=== PATIENT | male | born 1950 | race Caucasian/White ===

== ENCOUNTER 2018-12-20 01:13 | Emergency (ER) | payer MEDICARE, OTHER ==
[~2018-12-20] VITALS: Ht 177.8 cm; Wt 97.0 kg
[2018-12-20 01:18] VITALS: BP 152/86
[2018-12-20] MEDS ORDERED: ipratropium/albuterol 3ml nebule NEB ONE (01:25)
[2018-12-20] MEDS ORDERED: PRED20TA PO (02:00)
[2018-12-20] MEDS ORDERED: albuterol 2.5 MG/3 ML nebule NEB ONE (02:00)
[2018-12-20] MEDS ORDERED: predniSONE 20 mg tablet PO ONE (02:00)
== END 2018-12-20 02:36 | disposition home or self-care (01) ==
LOC: ER 01:14
DX: J45.901 Unspecified asthma with (acute) exacerbation (principal); Z87.891 Personal history of nicotine dependence; Z98.890 Other specified postprocedural states; Z88.0 Allergy status to penicillin; Z88.2 Allergy status to sulfonamides; Z88.5 Allergy status to narcotic agent; Z88.1 Allergy status to other antibiotic agents; Z88.8 Allergy status to other drugs, medicaments and biological substances; Z79.899 Other long term (current) drug therapy
CPT/HCPCS: 93005; 94640; 94760; 99284

== ENCOUNTER 2019-01-16 11:19 | Emergency (ER) | payer OTHER, MEDICARE ==
[~2019-01-16] VITALS: Ht 177.8 cm; Wt 97.0 kg
[~2019-01-16 11:19] MED LIST: PRED20TA PO
[2019-01-16 12:03] LABS: BASOPHILS # (AUTO) 0.1 X10'3 (0-0.2); EOSINOPHILS # (AUTO) 0.5 X10'3 (0-0.9); EOSINOPHILS % (AUTO) 7.1 % (0-6); HEMATOCRIT 44.3 % (42.0-52.0); HEMOGLOBIN 15.3 g/dl (14.0-17.9); LYMPHOCYTES # (AUTO) 1.7 X10'3 (1.1-4.8); LYMPHOCYTES % (AUTO) 25.6 % (21-51); MEAN CORPUSCULAR HEMOGLOBIN 31.2 PG (27.0-31.0); MEAN CORPUSCULAR HGB CONC 34.6 g/dL (33.0-36.5); MEAN CORPUSCULAR VOLUME 90.3 FL (78-98); MEAN PLATELET VOLUME 6.9 FL (7.4-10.4); MONOCYTES # (AUTO) 0.7 X10'3 (0-0.9); MONOCYTES % (AUTO) 11.1 % (2-12); NEUTROPHILS # (AUTO) 3.6 X10'3 (1.8-7.7); NEUTROPHILS % (AUTO) 55.2 % (42-75); PLATELET COUNT 248 X10'3 (140-440); RED CELL DISTRIBUTION WIDTH 13.4 % (11.5-14.5); WHITE BLOOD COUNT 6.6 X10'3 (4.5-11.0)
[2019-01-16 12:10] VITALS: BP 128/83
[2019-01-16 12:13] LABS: ALANINE AMINOTRANSFERASE 21 U/L (12-78); ALBUMIN 4.1 G/DL (3.4-5.0); ALBUMIN/GLOBULIN RATIO 1.3 (1.1-1.5); ALKALINE PHOSPHATASE 71 IU/L (46-116); ANION GAP 9 (8-16); ASPARTATE AMINO TRANSFERASE 14 U/L (10-37); BILIRUBIN,TOTAL 0.6 MG/DL (0.1-1.0); BLOOD UREA NITROGEN 14 MG/DL (7-18); BUN/CREATININE RATIO 14.9 (5.4-32.0); CALCIUM 8.9 MG/DL (8.5-10.1); CHLORIDE 103 MMOL/L (99-107); CREATININE 0.94 MG/DL (0.60-1.10); GLUCOSE 99 MG/DL (70-104); POTASSIUM 4.8 MMOL/L (3.5-5.1); SODIUM 138 MMOL/L (135-145); TOTAL CARBON DIOXIDE 26.4 MMOL/L (24-32); TOTAL PROTEIN 7.3 G/DL (6.4-8.2); eGFR 80 ML/MIN
== END 2019-01-16 12:49 | disposition home or self-care (01) ==
LOC: ER 11:20
DX: H54.7 Unspecified visual loss (principal); R10.9 Unspecified abdominal pain; I10 Essential (primary) hypertension; J45.909 Unspecified asthma, uncomplicated; K21.9 Gastro-esophageal reflux disease without esophagitis; Z87.891 Personal history of nicotine dependence; Z85.46 Personal history of malignant neoplasm of prostate; Z88.1 Allergy status to other antibiotic agents; Z88.5 Allergy status to narcotic agent; Z88.0 Allergy status to penicillin; Z88.2 Allergy status to sulfonamides; Z88.8 Allergy status to other drugs, medicaments and biological substances; Z79.899 Other long term (current) drug therapy; Z98.890 Other specified postprocedural states
CPT/HCPCS: 36415; 71045; 80053; 84484; 85025; 93005; 99284

== ENCOUNTER 2019-02-06 03:59 | Emergency (ER) | payer OTHER, MEDICARE ==
[~2019-02-06] VITALS: Ht 177.8 cm; Wt 103.8 kg
[2019-02-06] MEDS ORDERED: CEPH-572 PO (05:37)
[2019-02-06 05:48] VITALS: BP 118/73
[2019-02-06 05:50] LABS: CLARITY,URINE CLOUDY (Clear); COLOR,URINE YELLOW (Yellow); GLUCOSE, URINE NEGATIVE (Neg); KETONES,URINE NEGATIVE (Neg); LEUKOCYTE ESTERASE ,URINE LARGE (Neg); OCCULT BLOOD,URINE LARGE (Neg); PH,URINE 6.5 (4.8-8.0); PROTEIN,URINE >=300 mg/dl (Neg)
[2019-02-06 05:54] LABS: UA COLLECTION TYPE FOLEY CATH
[2019-02-06 05:55] LABS: NITRITES, URINE NEGATIVE (Neg); WBC,URINE TNTC /HPF (0-4)
[2019-02-06 05:56] LABS: BACTERIA,URINE FEW /HPF (Neg); SQUAMOUS EPITHELIAL CELL,UR FEW /LPF (FEW); WBC CLUMPS,URINE MODERATE /HPF (NEGATIVE)
== END 2019-02-06 05:50 | disposition home or self-care (01) ==
LOC: ER 04:00
DX: R20.0 Anesthesia of skin (principal); R20.2 Paresthesia of skin; I10 Essential (primary) hypertension; J45.909 Unspecified asthma, uncomplicated; K21.9 Gastro-esophageal reflux disease without esophagitis; Z98.890 Other specified postprocedural states; Z88.0 Allergy status to penicillin; Z88.2 Allergy status to sulfonamides; Z88.5 Allergy status to narcotic agent; Z88.1 Allergy status to other antibiotic agents; Z79.899 Other long term (current) drug therapy
CPT/HCPCS: 70450; 81001; 87077; 87088; 87186; 99284

== ENCOUNTER 2021-11-22 06:35 | Day surgery (SDC) | payer OTHER, MEDICARE ==
[2021-11-22] VITALS (14 sets, daily range): BP systolic 88–121; BP diastolic 35–69
[~2021-11-22] VITALS: Ht 177.8 cm; Wt 79.4 kg
[2021-11-22] MEDS ORDERED: normal saline 1000ml 1,000 ML IV PRN (07:00)
[2021-11-22] MEDS ORDERED: ASPI-1264 PO (07:13)
[2021-11-22] MEDS ORDERED: PRE5T PO (07:13)
[2021-11-22] MEDS ORDERED: OMEP20CA16 PO (07:13)
[2021-11-22] MEDS ORDERED: ONDA-104 PO (07:13)
[2021-11-22 07:26] LABS: BASOPHILS % (AUTO) 0.6 % (0-1); EOSINOPHILS % (AUTO) 0.6 % (0-6); HEMATOCRIT 28.1 % (42.0-52.0); HEMOGLOBIN 9.7 g/dl (14.0-17.9); LYMPHOCYTES # (AUTO) 0.7 X10'3 (1.1-4.8); LYMPHOCYTES % (AUTO) 16.1 % (21-51); MEAN CORPUSCULAR HEMOGLOBIN 33.2 PG (27.0-31.0); MEAN CORPUSCULAR HGB CONC 34.6 g/dL (33.0-36.5); MEAN CORPUSCULAR VOLUME 95.8 FL (78-98); MEAN PLATELET VOLUME 7.2 FL (7.4-10.4); MONOCYTES # (AUTO) 0.8 X10'3 (0-0.9); MONOCYTES % (AUTO) 17.7 % (2-12); NEUTROPHILS # (AUTO) 2.8 X10'3 (1.8-7.7); PLATELET COUNT 120 X10'3 (140-440); RED BLOOD COUNT 2.93 X10'6 (4.70-6.10); WHITE BLOOD COUNT 4.3 X10'3 (4.5-11.0)
[2021-11-22 08:17] LABS: ANISOCYTOSIS 1+; PLATELET ESTIMATE DECREASED; TOTAL CELLS COUNTED 100
[2021-11-22 08:18] LABS: ACANTHOCYTES FEW; ELLIPTOCYTES FEW; POIKILOCYTOSIS 1+; TEAR DROP CELLS FEW
[2021-11-22] MEDS ORDERED: midazolam 1 mg/ML 2ml injection ONE (08:49)
[2021-11-22] MEDS ORDERED: LIDOcaine 1%/PF 5ML 10 MG/ML VIAL ONE (08:49)
[2021-11-22] MEDS ORDERED: fentaNYL/PF 50MCG/1 ML 2ML syringe ONE (08:50)
[2021-11-22] MEDS ORDERED: gelatin sponge, absorbable (Gelfoam 12-7MM) sponge TP ONE (09:03)
[2021-11-22] MEDS ORDERED: normal saline 1000ml 1,000 ML IV SCH (09:35)
== END 2021-11-22 12:00 | disposition home or self-care (01) ==
LOC: SSTAY O 06:35
PROVIDERS: ATTEND Radiology Vascular & Interventional Radiology
DX: C61 Malignant neoplasm of prostate (principal); K76.9 Liver disease, unspecified; K21.9 Gastro-esophageal reflux disease without esophagitis; Z79.899 Other long term (current) drug therapy; Z88.6 Allergy status to analgesic agent; Z88.8 Allergy status to other drugs, medicaments and biological substances; Z88.2 Allergy status to sulfonamides; Z98.890 Other specified postprocedural states; Z88.0 Allergy status to penicillin
CPT/HCPCS: 36415; 47000; 77012; 85025; 85610; 99152; 99153; J2250; J3010; J3490; J7030; 85007; A4615